=== PATIENT | female | born 1960 | race African-American/Black ===

== ENCOUNTER 2017-07-21 21:47 | Emergency (ER) | payer OTHER ==
[2017-07-22 00:01] LABS: URINE PH (Dip) POC 6.5 (5.0-8.5)
[2017-07-22 00:01] LABS: URINE BLOOD (Dip) POC 1+ (NEGATIVE); URINE GLUCOSE (Dip) POC Negative (NEGATIVE); URINE KETONES (Dip) POC Negative (NEGATIVE); URINE LEUKOCYTE EST (Dip) POC Trace (NEGATIVE); URINE NITRITE (Dip) POC Positive (NEGATIVE); URINE TOTAL PROTEIN POC Trace (NEGATIVE)
== END 2017-07-22 01:11 | disposition home or self-care (01) ==
LOC: FTE 07-22 01:11
DX: N30.01 Acute cystitis with hematuria (principal); I10 Essential (primary) hypertension; Z76.0 Encounter for issue of repeat prescription
CPT/HCPCS: 81003; 81025; 99283

== ENCOUNTER 2017-11-20 13:17 | Emergency (ER) | payer OTHER ==
[2017-11-20] MEDS: KETOROLAC 30 MG INJ IM (15:03)
[2017-11-20 15:23] LABS: ADD MAN DIFF? NO
[2017-11-20 15:27] LABS: BASOPHIL # 0.1 10^3/ul (0.0-0.1); BASOPHILS % 0.6 % (0.0-2.0); EOSINOPHILS # 0.2 10^3/ul (0.0-0.5); EOSINOPHILS % 2.2 % (0.0-7.0); HEMATOCRIT 36.7 % (37.0-47.0); HEMOGLOBIN 11.5 g/dl (12.0-16.0); LYMPHOCYTES # 2.9 10^3/ul (0.8-2.9); LYMPHOCYTES % 34.6 % (15.0-51.0); MEAN CORPUSCULAR HEMOGLOBIN 26.7 pg (29.0-33.0); MEAN CORPUSCULAR HGB CONC 31.3 g/dl (32.0-37.0); MEAN CORPUSCULAR VOLUME 85.3 fl (82.0-101.0); MONOCYTE # 0.7 10^3/ul (0.3-0.9); MONOCYTES % 8.9 % (0.0-11.0); NEUTROPHIL # 4.4 10^3/ul (1.6-7.5); NEUTROPHILS % 53.5 % (39.0-77.0); PLATELET COUNT 251 10^3/UL (140-415); RED CELL DISTRIBUTION WIDTH 14.9 % (11.5-14.5)
[2017-11-20 15:27] LABS: WHITE BLOOD COUNT 8.3 10^3/ul (4.8-10.8)
[2017-11-20 15:49] LABS: ANION GAP 14 (8-16); BLOOD UREA NITROGEN 20 mg/dl (7-20); CALCIUM 9.5 mg/dl (8.4-10.2); CARBON DIOXIDE 27 mmol/L (21-31); CHLORIDE 104 mmol/L (97-110); GLUCOSE 100 mg/dl (70-220); POTASSIUM 4.4 mmol/L (3.5-5.1); SODIUM 141 mmol/L (135-144)
[2017-11-20 16:02] LABS: TROPONIN-I < 0.012 ng/ml (0.000-0.120)
== END 2017-11-20 17:20 | disposition home or self-care (01) ==
LOC: FTE 13:17
DX: M79.602 Pain in left arm (principal); M79.601 Pain in right arm; I10 Essential (primary) hypertension
CPT/HCPCS: 71045; 73030; 73030-RT; 80048; 84484; 85025; 93005; 96372; 99285-25

== ENCOUNTER 2018-08-03 13:55 | Emergency (ER) | payer OTHER | END 2018-08-03 15:57 | disposition home or self-care (01) | LOC: FTE 13:55 | DX: J01.91 Acute recurrent sinusitis, unspecified (principal); I10 Essential (primary) hypertension | CPT/HCPCS: 99282; Z7502 ==